=== PATIENT | male | born 1960 | race Two or more races ===

== ENCOUNTER 2020-02-17 11:35 | Outpatient (CLI) | payer OTHER | END 2020-02-17 11:42 | disposition home or self-care (01) | LOC: SONOGRAMA 11:35 → MAMO-SONO 13:15 | DX: N28.1 Cyst of kidney, acquired (principal) ==

== ENCOUNTER 2020-07-14 11:47 | Outpatient (CLI) | payer OTHER | END 2020-07-14 11:51 | disposition home or self-care (01) | LOC: RAD 11:47 | PROVIDERS: ATTEND Orthopaedic Surgery Sports Medicine | DX: M77.8 Other enthesopathies, not elsewhere classified (principal); M54.5 Low back pain; M25.561 Pain in right knee; M25.562 Pain in left knee; M17.0 Bilateral primary osteoarthritis of knee; M94.261 Chondromalacia, right knee; M94.262 Chondromalacia, left knee ==

== ENCOUNTER → 2020-07-18 | Outpatient (CLI) | payer OTHER | END | disposition home or self-care (01) | LOC: MRI 10:32 | PROVIDERS: ATTEND Orthopaedic Surgery Sports Medicine | DX: M22.11 Recurrent subluxation of patella, right knee (principal); M17.11 Unilateral primary osteoarthritis, right knee; M22.41 Chondromalacia patellae, right knee; M23.241 Derangement of anterior horn of lateral meniscus due to old tear or injury, right knee; M25.561 Pain in right knee | CPT/HCPCS: 73721 ==

== ENCOUNTER 2020-12-08 14:11 | Outpatient (CLI) | payer OTHER | END 2020-12-08 14:21 | disposition home or self-care (01) | LOC: RAD 14:11 | PROVIDERS: ATTEND Orthopaedic Surgery Sports Medicine | DX: M79.642 Pain in left hand (principal) ==

== ENCOUNTER 2021-11-08 12:09 | Outpatient (CLI) | payer OTHER | END 2021-11-08 12:15 | disposition home or self-care (01) | LOC: RAD 12:09 | PROVIDERS: ATTEND Orthopaedic Surgery Sports Medicine | DX: M25.561 Pain in right knee (principal); M25.562 Pain in left knee; M17.0 Bilateral primary osteoarthritis of knee; M94.261 Chondromalacia, right knee; M94.262 Chondromalacia, left knee ==

== ENCOUNTER 2024-06-30 06:57 | Day surgery (SDC) | payer OTHER ==
[2024-06-30] MEDS ORDERED: MIDAZOLAM HCL 2 MG/2 ML VIAL IV ONE (09:45)
[2024-06-30] MEDS ORDERED: ONDANSETRON HCL 2 MG/ML VIAL IV ONE (09:45)
[2024-06-30] MEDS ORDERED: DIPHENHYDRAMINE HCL 50 MG/ML VIAL 1ML IV ONE ×2 (09:45)
[2024-06-30] MEDS ORDERED: fentaNYL CITRATE 50 MCG/ML AMPUL IV PUSH ONE (09:45)
[2024-06-30] MEDS ORDERED: NALOXONE HCL 0.4 MG/ML AMPUL IV ONE (12:00)
== END 2024-06-30 11:10 | disposition home or self-care (01) ==
LOC: AMB-ENDOS 06:57
PROVIDERS: ATTEND Colon & Rectal Surgery
DX: D12.3 Benign neoplasm of transverse colon (principal); K63.5 Polyp of colon; K62.1 Rectal polyp